=== PATIENT | female | born 1995 | race Two or more races ===

== ENCOUNTER 2018-04-21 20:50 | Emergency (ER) | payer MEDICAID, OTHER ==
[2018-04-21 23:08] LABS: URINE PH (Dip) POC 6.5 (5.0-8.5)
[2018-04-21 23:08] LABS: URINE BLOOD (Dip) POC 1+ (NEGATIVE); URINE GLUCOSE (Dip) POC Negative (NEGATIVE); URINE KETONES (Dip) POC Negative (NEGATIVE); URINE LEUKOCYTE EST (Dip) POC 3+ (NEGATIVE); URINE NITRITE (Dip) POC Positive (NEGATIVE); URINE TOTAL PROTEIN POC 2+ (NEGATIVE)
[2018-04-21] MEDS: NAPROXEN 500 MG TAB PO (23:21)
[2018-04-21] MEDS: NAPROXEN 250 MG TAB PO (23:33)
== END 2018-04-21 23:41 | disposition home or self-care (01) ==
LOC: FTE 20:50
DX: N30.01 Acute cystitis with hematuria (principal); R10.2 Pelvic and perineal pain
CPT/HCPCS: 81003; 81025; 99283

== ENCOUNTER 2018-04-23 21:30 | Emergency (ER) | payer MEDICAID ==
[2018-04-23] MEDS ORDERED: SOD CHLORIDE 0.9% 1,000 ML IV (22:32)
[2018-04-23] MEDS: SODIUM CHLORIDE 0.9% 1L BAG IV* (23:00)
[2018-04-23 23:06] LABS: WHITE BLOOD COUNT 5.9 10^3/ul (4.8-10.8)
[2018-04-23 23:06] LABS: ABNORMAL IP MESSAGE 1; HEMATOCRIT 35.4 % (37.0-47.0); HEMOGLOBIN 12.1 g/dl (12.0-16.0); MEAN CORPUSCULAR HEMOGLOBIN 33.1 pg (29.0-33.0); MEAN CORPUSCULAR HGB CONC 34.2 g/dl (32.0-37.0); MEAN CORPUSCULAR VOLUME 96.7 fl (82.0-101.0); MEAN PLATELET VOLUME 10.1 fl (7.4-10.4); PLATELET COUNT 208 10^3/UL (140-415); RED BLOOD COUNT 3.66 10^6/ul (4.20-5.40); RED CELL DISTRIBUTION WIDTH 12.5 % (11.5-14.5)
[2018-04-23 23:07] LABS: ADD MAN DIFF? YES; POSITIVE DIFF @See below
[2018-04-23] MEDS: CEFTRIAXONE 1 GM/50 ML (PMX) 50 ML IVPB (23:08)
[2018-04-23] MEDS: ONDANSETRON 4 MG INJ IV (23:08)
[2018-04-23] MEDS: ACETAMINOPHEN 325 MG TAB PO (23:09)
[2018-04-23] MEDS: KETOROLAC 30 MG INJ IV (23:10)
[2018-04-23 23:27] LABS: ADD UMIC YES; UR ASCORBIC ACID NEGATIVE (NEGATIVE); UR BACTERIA FEW /HPF (NONE SEEN); UR BILIRUBIN (Dip) NEGATIVE (NEGATIVE); UR BLOOD (Dip) NEGATIVE (NEGATIVE); UR CLARITY CLEAR (CLEAR); UR COLOR AMBER (YELLOW); UR GLUCOSE (Dip) NEGATIVE (NEGATIVE); UR KETONES (Dip) 1+ mg/dL (NEGATIVE); UR LEUKOCYTE ESTERASE (Dip) TRACE Leu/ul (NEGATIVE); UR NITRITE (Dip) POSITIVE (NEGATIVE); UR NONSQUAMOUS EPITHELIAL CELL 1 /HPF (NONE SEEN); UR RBC 5 /HPF (0-5); UR SPECIFIC GRAVITY (Dip) 1.014 (1.003-1.030); UR SQUAMOUS EPITHELIAL CELL FEW /HPF (FEW); UR TOTAL PROTEIN (Dip) NEGATIVE (NEGATIVE); UR UROBILINOGEN (Dip) 2+ mg/dL (NEGATIVE); UR WBC 63 /HPF (0-5)
[2018-04-23 23:34] LABS: ALANINE AMINOTRANSFERASE 17 IU/L (13-69); ALBUMIN 4.1 g/dl (3.3-4.9); ALBUMIN/GLOBULIN RATIO 1.17; ALKALINE PHOSPHATASE 89 IU/L (42-121); ANION GAP 11 (5-13); ASPARTATE AMINO TRANSFERASE 21 IU/L (15-46); BILIRUBIN,INDIRECT 1.4 mg/dl (0-1.1); BILIRUBIN,TOTAL 1.4 mg/dl (0.2-1.3); BLOOD UREA NITROGEN 12 mg/dl (7-20); CARBON DIOXIDE 22 mmol/L (21-31); CHLORIDE 105 mmol/L (97-110); CREATININE 0.76 mg/dl (0.44-1.00); Estimated GFR > 60 mL/min (>60); GLUCOSE 182 mg/dl (70-220); LIPASE 40 U/L (23-300); POTASSIUM 3.2 mmol/L (3.5-5.1); SODIUM 138 mmol/L (135-144); TOTAL PROTEIN 7.6 g/dl (6.1-8.1)
[2018-04-23 23:39] LABS: LACTIC ACID 2.9 mmol/L (0.5-2.0)
[2018-04-23 23:59] LABS: BAND NEUTROPHILS #M 0.7 10^3/ul (0.0-0.6); BAND NEUTROPHILS % (M) 13 % (0-4); GIANT THROMBO% (M) 2 % (0-0); LYMPHOCYTES #M 0.2 10^3/ul (0.8-2.9); LYMPHOCYTES % (M) 5 % (15-51); MONOCYTE #M 0.1 10^3/ul (0.3-0.9); MONOCYTES % (M) 2 % (0-11); PLATELET ESTIMATE NORMAL; POLYCHROMASIA 1+ (0-0); SEG NEUT #M 4.8 10^3/ul (1.6-7.5); SEGMENTED NEUTROPHILS (M) % 80 % (39-77); SMUDGE%M 26 % (0-0)
[2018-04-24 01:52] LABS: LACTIC ACID 1.3 mmol/L (0.5-2.0)
[2018-04-24] MEDS: POTASSIUM CHLORIDE (SR) 20 MEQ TAB PO (02:11)
== END 2018-04-24 02:39 | disposition home or self-care (01) ==
LOC: FTE 04-24 02:39
DX: N12 Tubulo-interstitial nephritis, not specified as acute or chronic (principal)
CPT/HCPCS: 36415; 74176; 76856; 80053; 81001; 81025; 83605; 83690; 85025; 87040; 87086; 96374; 96375; 99285-25